=== PATIENT | female | born 1960 | race Caucasian/White ===

== ENCOUNTER 2023-12-12 18:46 | Emergency (ER) | payer BC, SELFPAY ==
[2023-12-12 18:52] VITALS: BP 143/93
[2023-12-12 20:29] VITALS: BMI 22.6
--- NOTE | 2023-12-12 20:29 | ED.GENMED ---
History of Present Illness
General
Chief Complaint: Bowel Problem
Source: patient
Exam Limitations: none
Time Seen by Provider: 12/12/23 19:59
History of Present Illness
History of Present Illness:
This is a 63 year old female that comes in with c/o abd pain. States that she was in [facility] last week. States that on Sunday she noticed that her bowel were not normal. States that she normally goes 3 times daily after every meal. States that she
has not moved her bowel since and that she has pain in the left abd. States that she has take Miralax, enema's, suppository and nothing has helped. States that she has pressure in the rectum. Denies any fever, chills, chest pain, SOB,
nausea, vomiting, diarrhea, headache, dizziness, urinary burning.
Past History
Past History
ED Past Medical History: HTN, Psychiatric (Anxiety, Depression) and Other (Migraines, Diverticulitis)
ED Past Surgical History: Appendectomy, Gynecological (Endometrial ablation) and Orthopedic (Finger surgery)
Social History
Tobacco: Non-smoker
Alcohol: None
Personal:
Living: with family
Review of Systems
Review of Systems
All Other Systems: ROS reviewed and negative except as documented in HPI and ROS
Constitutional: Reports no symptoms; Denies fever or chills
EENT: Reports no symptoms
Respiratory: Reports no symptoms; Denies cough or trouble breathing
Cardiac: Reports no symptoms; Denies chest pain
ABD/GI: Reports abdominal pain and constipated; Denies nausea, vomiting or diarrhea
: Reports no symptoms; Denies dysuria, frequency or urgency
Musculoskeletal: Reports no symptoms
Skin: Reports no symptoms
Neurological: Reports no symptoms; Denies dizzy or headache
Psychiatric: Reports no symptoms
Phy Exam
General Physical Exam
General Presentation: mild distress
General age: appears stated age
General Skin: warm and dry
General Habitus: normal
General Mental: alert
General Hydration: appears well hydrated
ENT Exam
ENT Exam: TM's normal, pharynx normal and neck supple
Eye Exam
Eye Exam: EOMI
Cardiovascular Exam
Cardiovascular Exam: regular rate/rhythm, no edema, no murmur and normal peripheral pulses
Pulmonary Exam
Pulmonary Exam: lungs clear, no respiratory distress, no rales, chest non tender, no crackles, no rhonchi, no wheezing and no cough
Gastrointestinal Exam
Gastrointestinal Exam: normal bowel sounds, soft, no organomegaly, no pulsatile mass, non distended, tender (Left sided and upper tenderness with palpation. ) and other (Rectal exam is negative for stool in the rectal vault)
Musculoskeletal Exam
Musculoskeletal Exam: full ROM and no edema
Skin Exam
Skin Exam: normal color, warm/dry, no rash and no petechia
Psychiatric Exam
Psychiatric Exam: normal mood/affect
Course
Orders/Labs/Results
Orders:
Orders
12/12/23 20:28
Ketorolac [Toradol] 30 mg IV NOW STA
12/12/23 20:29
0.9% Sodium Chloride 500 ml [Nss] 500 ml IV BOLUS
Iohexol [Omnipaque] See Protocol PO NOW STA
12/12/23 20:30
CT Abd/pel W Iv And Oral Contr Urgent
Comment:
Reason For Exam: abd pain left sided and upper abd
12/12/23 21:00
Complete Blood Count/With Diff Urgent
Comprehensive Metabolic Panel Urgent
Lipase Urgent
Abnormal Lab Results
12/12/23
21:00
Hgb 11.8 L g/dL
(12.0-16.0)
Hct 35.4 L %
(37.0-47.0)
BUN 19 H mg/dl
(7-17)
Total Bilirubin 0.1 L mg/dl
(0.2-1.3)
10/23/24 21:00
12/12/23 21:00
H/H slightly low. Dehydration. Total corey slightly low. Lipase normal at 244
Vital Signs
Initial and Last Documented VS:
Initial Vital Signs
Temp Pulse Resp BP Pulse Ox
98.5 F 84 20 143/93 99
12/12/23 18:52 12/12/23 18:52 12/12/23 18:52 12/12/23 18:52 12/12/23 18:52
Last Documented Vital Signs
Temp Pulse Resp BP Pulse Ox
98.5 F 84 20 143/93 97
12/12/23 18:52 12/12/23 18:52 12/12/23 18:52 12/12/23 18:52 12/12/23 22:33
MDM/Problems Addressed
Differential Diagnosis Includes:
Diverticulitis, Constipation
MDM/Problems Addressed:
This is a 63 year old female that comes in with c/o no BM since .
Will check labs and get CT scan.
Back into see patient. Explained that she does have diverticulitis. Will start patient on antibiotics and medicate further for pain. Will discharge home. Patient to follow up with the family doctor. Return with fever, vomiting, increased or changing
pain.
Chronic conditions affecting care:
Diverticulitis
Acute Exacerbation and/or Progression of Chronic Illness:
Diverticulitis
*Radiology
Radiology exam reviewed: radiology read reviewed (CT night hawk- Short segment of the sigmoid colon in the left pelvis exhibits wall thickening with surrounding inflammatory change, Most consistent with mild acute sigmoid diverticulitis. No
associated free air or abscess. )
*Pulse Oximetry
Patient hypoxic: no
*EKG
Interpreted by ED Provider?: NA
Rate: EKG- N/A
*Trade Recruiter Interpretation
Rate: Trade Recruiter- N/A
*Critical Care Note
Total Time (30-74mins, 75-104mins- exclusive of procedures): Not Applicable
ED Attending Note
-
Portions of this chart may have been created with voice recognition software.� Occasional wrong word or��sound alike� substitutions may have occurred due to the inherent limitations of voice recognition software.
Discharge Plan
Departure
Patient Disposition: Home (Routine Discharge)
Date of Disposition: 12/13/23
Time of Disposition: 00:40
Patient with high blood pressure during this ER visit?: Yes
Condition: Good
Covid-19: Not Applicable
Discharge Problem:
Diverticulitis of sigmoid colon
Instructions: Diverticulitis (DC), BLOOD PRESSURE
Prescriptions:
New
amoxicillin-pot clavulanate 875-125 mg tablet
1 tab PO BID Qty: 19 0RF
No Action
amoxicillin-pot clavulanate 875-125 mg tablet
1 tab PO BID Qty: 19 0RF
Referrals:
Williams Zamora DO [Family Provider] - Follow up in 2-3 days
Activity Restrictions/Additional Instructions:
As discussed, your blood work shows that you are slightly Dehydrated. Please increase your water intake. Your CT shows that you have Diverticulitis. You have been given your first antibiotic here and a prescription has been sent to your Pharmacy.
Please take as directed until finished. Follow up with the family doctor for recheck. You may use Tylenol 1000mg every 6 hours for pain or Ibuprofen 600mg every 6 hours with food and alternate them. IF YOU HAVE FEVER, INCREASED OR CHANGING PAIN, OR
YOU HAVE ANY OTHER CONCERNS PLEASE RETURN TO THE EMERGENCY ROOM
Interventions
Interventions:
*Risk Screen - Suicide Last Done: 12/12/23 18:52
*General Assessment Last Done: 12/12/23 18:52
*Neglect/Abuse Screening Last Done: 12/12/23 18:52
ED- Fall Risk Assessment Last Done: 12/12/23 21:39
*ED COVID-19 Vaccine History Last Done: 12/12/23 20:42
BN-Vnmtyd-Jwjjubbmic Assessment Last Done: 12/12/23 23:50
Discharge Date and Time
Print Language: AFGHAN
[2023-12-12] MEDS: OMNIPAQUE 50 ML PO (21:00)
[2023-12-12 21:09] LABS: % Basophils 0.4 % (0-2); % Eosinophils 2.3 % (0-6); % Immature Granulocytes 0.1 % (0-0.5); % Monocytes 8.2 % (1.7-9.3); Absolute Eosinophils 0.2 10^3/uL (0-0.7); Absolute Lymphocytes 2.4 10^3/uL (1.2-3.4); Absolute Monocytes 0.6 10^3/uL (0.1-0.6); Absolute Neutrophils 3.8 10^3/uL (1.4-6.5); Hematocrit 35.4 % (37.0-47.0); Hemoglobin 11.8 g/dL (12.0-16.0); Mean Corp Hgb Conc. 33.3 g/dL (33.0-37.0); Mean Corpuscular Hgb 27.3 pg (27.0-31.0); Mean Corpuscular Volume 81.8 fL (81.0-99.0); Mean Platelet Volume 8.5 fL (7.4-10.4); Nucleated Red Blood Cells % 0 %; Platelet Count 319 10^3/uL (130-400); Red Blood Cell Count 4.33 10^6/uL (4.20-5.40); Red Cell Dist. Width 12.7 % (11.5-14.5)
[2023-12-12] MEDS: NSS 500 IV (21:19)
[2023-12-12] MEDS: TORADOL 30 MG IV (21:19)
[2023-12-12 21:22] LABS: ALT (SGPT) 17 U/L (0-35); AST (SGOT) 21 U/L (14-36); Albumin 4.1 g/dl (3.5-5.0); Alkaline Phosphatase 60 U/L (38-126); Blood Urea Nitrogen 19 mg/dl (7-17); Calcium 9.7 mg/dl (8.4-10.2); Carbon Dioxide 27 mmol/L (22-30); Chloride 102 mmol/L (98-107); Estimated Creatinine Clearance 66 ml/min; Glucose 94 mg/dl (70-99); Sodium 141 mmol/L (135-145); Total Bilirubin 0.1 mg/dl (0.2-1.3); Total Protein 6.7 g/dl (6.3-8.2); eGFR > 60.00
[2023-12-12 21:23] LABS: Lipase 244 U/L (23-300)
[2023-12-13] VITALS: BP 121/67
[2023-12-13] MEDS: AUGMENTIN 875 MG/125 MG 1 TABLET PO (00:46)
[2023-12-13] MEDS: ZOFRAN 4 MG IV (00:46)
[2023-12-13] MEDS: DILAUDID 1 MG IV (00:47)
[2023-12-13 01:00] VITALS: BP 129/63
== END 2023-12-13 01:40 | disposition home or self-care (01) ==
LOC: EMR 18:46
PROVIDERS: Clinical Nurse Specialist Family Health; EMERGENCY PHYSICIAN Emergency Medicine; FAMILY PHYSICIAN Family Medicine
DX: K57.32 Diverticulitis of large intestine without perforation or abscess without bleeding (principal); E86.0 Dehydration; I10 Essential (primary) hypertension; Z90.49 Acquired absence of other specified parts of digestive tract
CPT/HCPCS: 99284; 96374; 96375; 96361; 74177; 80053; 83690; 85025; Q9967

== ENCOUNTER 2023-12-15 13:25 | Emergency (ER) | payer BC, SELFPAY ==
[2023-12-15 13:33] VITALS: BP 125/74
[2023-12-15 14:05] VITALS: BP 122/80
[2023-12-15 15:26] LABS: % Basophils 0.8 % (0-2); % Immature Granulocytes 0.5 % (0-0.5); % Lymphocytes 33.3 % (20.5-51.1); % Neutrophils 56.4 % (42.2-75.2); Absolute Basophils 0.1 10^3/uL (0-0.2); Absolute Eosinophils 0.1 10^3/uL (0-0.7); Absolute Lymphocytes 2.2 10^3/uL (1.2-3.4); Absolute Monocytes 0.5 10^3/uL (0.1-0.6); Absolute Neutrophils 3.6 10^3/uL (1.4-6.5); Hematocrit 38.5 % (37.0-47.0); Hemoglobin 12.7 g/dL (12.0-16.0); Mean Corpuscular Hgb 27.2 pg (27.0-31.0); Mean Corpuscular Volume 82.4 fL (81.0-99.0); Mean Platelet Volume 8.6 fL (7.4-10.4); Nucleated Red Blood Cells % 0 %; Platelet Count 369 10^3/uL (130-400); Red Blood Cell Count 4.67 10^6/uL (4.20-5.40); Red Cell Dist. Width 12.5 % (11.5-14.5); White Blood Cell Count 6.5 10^3/uL (4.8-10.8)
[2023-12-15 15:37] LABS: ALT (SGPT) 17 U/L (0-35); AST (SGOT) 22 U/L (14-36); Albumin 4.4 g/dl (3.5-5.0); Alkaline Phosphatase 73 U/L (38-126); Blood Urea Nitrogen 19 mg/dl (7-17); Calcium 10.3 mg/dl (8.4-10.2); Carbon Dioxide 29 mmol/L (22-30); Chloride 103 mmol/L (98-107); Glucose 93 mg/dl (70-99); Lipase 184 U/L (23-300); Potassium 4.1 mmol/L (3.5-5.1); Sodium 141 mmol/L (135-145); Total Bilirubin 0.3 mg/dl (0.2-1.3); Total Protein 7.1 g/dl (6.3-8.2); eGFR > 60.00
[2023-12-15 16:00] VITALS: BP 137/68
[2023-12-15] MEDS: TORADOL 30 MG IV (16:39)
[2023-12-15] MEDS: TYLENOL 1000 MG PO (16:39)
--- NOTE | 2023-12-15 17:38 | ED.GENMED ---
History of Present Illness
General
Chief Complaint: Abdominal Pain
Source: patient
Exam Limitations: none
Time Seen by Provider: 12/15/23 15:08
Nursing documentation reviewed up to this point in time: agreed with
History of Present Illness
History of Present Illness:
63-year-old female presenting to the emergency department with concerns of ongoing discomfort to the left lower quadrant. She was diagnosed with diverticulitis late in the evening on Sunday, 2 days ago. She is taking 2 days of. She has had
some improvement of her symptoms. She called her primary care doctor today that said she is to go to the ER for IV antibiotics. She denies any nausea vomiting fevers changes in bowel movements. Patient does not have any significant
immunosuppressive history or diabetes significant vascular disease nephropathy severe heart disease. She claims that she can get close follow-up with her primary care doctor. She has been able to tolerate by mouth well without difficulty.
Past History
Past History
ED Past Medical History: HTN, Psychiatric (Anxiety, Depression) and Other (Migraines, Diverticulitis)
ED Past Surgical History: Appendectomy, Gynecological (Endometrial ablation) and Orthopedic (Finger surgery)
Social History
Tobacco: Non-smoker
Alcohol: None
Personal:
Living: with family
Review of Systems
Review of Systems
Allergies reviewed?: Yes
All Other Systems: ROS reviewed and negative except as documented in HPI and ROS
Phy Exam
Physical Exam
Physical Exam:
GENERAL: Alert , in no apparent distress
EYE: pupils equal and reactive
NECK: Supple, no significant adenopathy.
ENT: o/p clr, mmm.
CARDIAC: Regular rate and rhythm .
LUNGS: Clear breath sounds bilaterally, no acute respiratory distress, no wheezes/rales/rhonchi
ABDOMEN: Localized pain to the left lower quadrant with deep palpation otherwise soft benign abdomen no peritoneal signs no significant guarding
NEUROLOGICAL: Alert and oriented, no focal neuro deficits
SKIN: Warm and dry, skin intact.
MUSCULOSKELETAL: No edema, well perfused.
PSYCH: Normal and appropriate interaction.
Course
Orders/Labs/Results
Orders:
Orders
12/15/23 15:19
Complete Blood Count/With Diff Urgent
Comprehensive Metabolic Panel Urgent
Lipase Urgent
12/15/23 16:26
Acetaminophen [Tylenol] 1,000 mg PO NOW STA
Ketorolac [Toradol] 30 mg IM NOW STA
12/15/23 16:35
Ketorolac [Toradol] 30 mg IV NOW STA
Abnormal Lab Results
12/15/23
15:19
BUN 19 H mg/dl
(7-17)
Calcium 10.3 H mg/dl
(8.4-10.2)
12/15/23 15:19
12/15/23 15:19
Vital Signs
Initial and Last Documented VS:
Initial Vital Signs
Temp Pulse Resp BP Pulse Ox
98.3 F 83 18 125/74 98
12/15/23 13:33 12/15/23 13:33 12/15/23 13:33 12/15/23 13:33 12/15/23 13:33
Last Documented Vital Signs
Temp Pulse Resp BP Pulse Ox
98.3 F 83 18 125/74 98
12/15/23 13:33 12/15/23 13:33 12/15/23 13:33 12/15/23 13:33 12/15/23 13:33
MDM/Problems Addressed
MDM/Problems Addressed:
61-year-old female presenting to the emergency department with concerns of ongoing discomfort to her left lower quadrant after being diagnosed with diverticulitis and started on Augmentin 2-1/2 days ago. She is taking 2 days worth of Augmentin at
this point. She has been able to slightly progress her diet. Pain is slightly improved but is not fully gone. She called her primary care doctor that advise going to the ER and potentially getting IV antibiotics. She denies any fevers nausea
vomiting or any difficulty tolerating by mouth. On arrival here vital signs are normal patient in no distress walking normally. Labs were obtained with no white count no left shift normal renal function. No significant abnormalities to her labs.
Patient claims she has been taking Tylenol for pain but no NSAIDs. She did claim that sometimes she would get reflux by taking NSAIDs. Her abdomen was assessed with minimal discomfort to the left lower quadrant but no evidence of peritoneal signs
or significant guarding. We had a very thorough discussion about disease process of diverticulitis. It seemed unlikely that this was developing perforation or abscess based on her exam labs and vital signs. Symptoms seem to have some degree of
improvement after roughly 48 hours of antibiotics. Considering this consideration of more time needed for symptom improvement was discussed with the patient. If discussed an NSAID would probably be significantly helpful as well and she was offered
to take famotidine with this to protect her stomach in the setting. She denies any life-threatening side effects or complications from NSAIDs in the past. She was given a trial dose of Toradol and Tylenol here and she claims to have significant
improvement of pain. This was further reassurance that her pain was not uncontrolled. The likelihood that a CT scan would be helpful in further management seems to be low at this point considering her reassuring exam. It did appear that IV
antibiotics likely would not be indicated at this time as well considering she has had improvement now significant improvement with appropriate pain medication. No white count no fevers. He was advised strongly to follow-up closely with the
primary care doctor and GI and return for any progression or worsening of symptoms.
*Critical Care Note
Total Time (30-74mins, 75-104mins- exclusive of procedures): Not Applicable
ED Attending Note
-
Portions of this chart may have been created with voice recognition software.� Occasional wrong word or��sound alike� substitutions may have occurred due to the inherent limitations of voice recognition software.
Discharge Plan
Departure
Patient Disposition: Home (Routine Discharge)
Date of Disposition: 12/15/23
Time of Disposition: 17:38
Patient with high blood pressure during this ER visit?: No
Condition: Good
Covid-19: Not Applicable
Discharge Problem:
Diverticulitis
Instructions: Diverticulitis (DC)
Prescriptions:
New
famotidine 20 mg tablet
20 mg PO BID 4 Days Qty: 8 0RF
naproxen sodium [Aleve] 220 mg capsule
440 mg PO BID PRN (Reason: Pain) 5 Days Qty: 10 0RF
No Action
amoxicillin-pot clavulanate 875-125 mg tablet
1 tab PO BID Qty: 19 0RF
amoxicillin-pot clavulanate 875-125 mg tablet
1 tab PO BID Qty: 19 0RF
Referrals:
Williams Zamora DO [Family Provider] -
Nely Carlisle MD [Active] - Follow up in 5-7 days
Activity Restrictions/Additional Instructions:
You came to the emergency department today with concerns of ongoing discomfort after being diagnosed with diverticulitis. You can start taking an NSAID and he can also take the famotidine twice daily to protect your stomach in the setting of taking
an NSAID. Please slowly progress your diet. If you develop a fever or any progressive symptoms please return for reassessment.
Interventions
Interventions:
*Risk Screen - Suicide Last Done: 12/15/23 13:33
*General Assessment Last Done: 12/15/23 13:33
*Neglect/Abuse Screening Last Done: 12/15/23 13:33
Discharge Date and Time
Print Language: SYRIAC
[2023-12-15 17:59] VITALS: BP 119/78
== END 2023-12-15 18:01 | disposition home or self-care (01) ==
LOC: EMR 13:25
PROVIDERS: Physician Assistant; EMERGENCY PHYSICIAN Emergency Medicine; FAMILY PHYSICIAN Family Medicine
DX: K57.92 Diverticulitis of intestine, part unspecified, without perforation or abscess without bleeding (principal); I10 Essential (primary) hypertension; G43.909 Migraine, unspecified, not intractable, without status migrainosus; F32.A Depression, unspecified; F41.9 Anxiety disorder, unspecified; Z86.16 Personal history of COVID-19; Z91.018 Allergy to other foods
CPT/HCPCS: 99284; 96374; 80053; 83690; 85025

== ENCOUNTER 2024-05-09 06:20 | Day surgery (SDC) | payer BC, SELFPAY | END 2024-05-09 16:11 | disposition home or self-care (01) | LOC: GI 06:20 | PROVIDERS: ATTENDING PHYSICIAN Internal Medicine Gastroenterology | DX: Z12.11 Encounter for screening for malignant neoplasm of colon (principal); K57.30 Diverticulosis of large intestine without perforation or abscess without bleeding; K62.89 Other specified diseases of anus and rectum; Z53.8 Procedure and treatment not carried out for other reasons | CPT/HCPCS: G0121 ==